=== PATIENT | female | born 2000 | race African-American/Black ===

== ENCOUNTER 2021-05-18 04:04 | Emergency (ER) | payer OTHER ==
[~2021-05-18] VITALS: Ht 157.5 cm; Wt 68.2 kg
[2021-05-18 04:11] VITALS: TEMP 98.7
[2021-05-18 05:08] VITALS: BP 126/83; PULSE 83
[2021-05-18] MEDS ORDERED: ZOFRAN ODT4 MG PO (05:09)
== END 2021-05-18 05:17 | disposition home or self-care (01) ==
LOC: COL.ER 04:04
DX: G89.18 Other acute postprocedural pain (principal); R11.2 Nausea with vomiting, unspecified; J45.909 Unspecified asthma, uncomplicated; Z79.899 Other long term (current) drug therapy
CPT/HCPCS: J1170

== ENCOUNTER 2021-09-10 22:21 | Emergency (ER) | payer OTHER ==
[~2021-09-10 22:21] MED LIST: ZOFRAN ODT4 MG PO
[2021-09-10 22:40] VITALS: TEMP 98.4
[2021-09-10 23:13] LABS: COLLECTION METHOD CLEAN CATCH
[2021-09-10 23:26] LABS: AMORPHOUS CRYSTAL Present (NOT PRESENT); MUCOUS Present (NOT PRESENT); PH 6 (5-8); URINE APPEARANCE Hazy (CLEAR/HAZY); URINE BACTERIA None Seen /hpf (NONE SEEN); URINE BILIRUBIN Negative (NEGATIVE); URINE BLOOD Negative (NEGATIVE); URINE COLOR Yellow (YELLOW); URINE GLUCOSE Negative (NEGATIVE); URINE KETONE Negative (NEGATIVE); URINE LEUKOCYTE ESTERASE Negative (NEGATIVE); URINE NITRATE Negative (NEGATIVE); URINE PROTEIN(semi-quant) Negative (NEGATIVE); URINE UROBILINOGEN Negative (NEGATIVE)
[2021-09-11 00:52] VITALS: BP 107/68; PULSE 72
== END 2021-09-11 00:52 | disposition home or self-care (01) ==
LOC: COL.ER 22:21
PROVIDERS: Physician Assistant
DX: K59.00 Constipation, unspecified (principal); Z32.02 Encounter for pregnancy test, result negative

== ENCOUNTER 2021-09-14 05:27 | Emergency (ER) | payer OTHER ==
[~2021-09-14] VITALS: Ht 157.5 cm; Wt 70.5 kg
[2021-09-14 05:35] VITALS: TEMP 98
[2021-09-14 06:21] LABS: COLLECTION METHOD CLEAN CATCH
[2021-09-14 06:21] LABS: BASO % 0.3 % (0.0-2.0); EOS # 0.1 K/mm3 (0.0-0.7); EOS % 1.1 % (0.0-4.0); GRAN # 5.8 K/mm3 (1.4-6.5); GRAN % 72.4 % (42.2-75.2); HEMOGLOBIN 12.1 g/dl (12.5-16.0); LYMPH # 1.4 K/mm3 (1.2-3.4); LYMPH % 16.9 % (20.0-51.0); MEAN CELL VOLUME 89 fl (80.0-100.0); MEAN CORPUSCULAR HEMOGLOBIN 30 pg (27-31); MEAN CORPUSCULAR HGB CONC 34 g/dl (33.0-37.0); MEAN PLATELET VOLUME 9.9 fl (7.4-10.4); MONO # 0.7 K/mm3 (0.1-0.6); PLATELET COUNT 355 K/mm3 (130-400); RED BLOOD COUNT 4.01 M/mm3 (4.10-5.30); REDCELL DISTRIBUTION WIDTH-CV 13.4 % (11.5-14.5)
[2021-09-14 06:22] LABS: HEMATOCRIT 35.6 % (37.0-47.0)
[2021-09-14 06:36] LABS: ALBUMIN 2.9 gm/dL (3.5-5.0); BILIRUBIN,TOTAL 0.2 mg/dL (0.2-1.2); CALCIUM 9.2 mg/dL (8.4-10.2); CREATININE, serum 0.79 mg/dL (0.57-1.11); POTASSIUM 4.4 mmol/L (3.5-4.5); TOTAL PROTEIN 7.2 gm/dL (6.2-8.1)
[2021-09-14 06:44] LABS: MUCOUS Present (NOT PRESENT); PH 6 (5-8); URINE APPEARANCE Hazy (CLEAR/HAZY); URINE BACTERIA None Seen /hpf (NONE SEEN); URINE BILIRUBIN Negative (NEGATIVE); URINE BLOOD Negative (NEGATIVE); URINE COLOR Yellow (YELLOW); URINE GLUCOSE Negative (NEGATIVE); URINE KETONE Negative (NEGATIVE); URINE LEUKOCYTE ESTERASE Negative (NEGATIVE); URINE NITRATE Negative (NEGATIVE); URINE PROTEIN(semi-quant) Negative (NEGATIVE); URINE RBC 0-2 /hpf (0-2); URINE UROBILINOGEN Negative (NEGATIVE)
[2021-09-14 07:58] VITALS: BP 108/70; PULSE 89
== END 2021-09-14 07:58 | disposition home or self-care (01) ==
LOC: COL.ER 05:27
PROVIDERS: Personal Emergency Response Attendant
DX: R10.2 Pelvic and perineal pain (principal); Z32.02 Encounter for pregnancy test, result negative
CPT/HCPCS: J0696; J2270; J2405; J7030; Q9967

== ENCOUNTER 2021-11-02 08:47 | Day surgery (SDC) | payer OTHER ==
[~2021-11-02] VITALS: Ht 157.5 cm; Wt 66.3 kg
[2021-11-02] MEDS ORDERED: PROAIR HFA0.09 MG/AC IH (09:01)
[2021-11-02] MEDS ORDERED: SPRINTEC 35 MCG1 TAB PO (09:02)
[2021-11-02 09:09] VITALS: BP 108/70; PULSE 83; TEMP 98.2
[2021-11-02 11:20] VITALS: BP 148/74; PULSE 78
[2021-11-02 11:30] VITALS: BP 101/72; PULSE 81
[2021-11-02 11:45] VITALS: BP 106/76; PULSE 73
[2021-11-02 11:55] VITALS: BP 105/74; PULSE 71
--- NOTE | 2021-11-02 11:57 | NUR ---
Discharge instructions given to pt.pt verbalizes understanding.
--- NOTE | 2021-11-02 12:10 | NUR ---
Pt escorted out via wheelchair by this nurse.
[2021-11-02 12:20] VITALS: BP 106/66; PULSE 74
== END 2021-11-02 12:21 ==
LOC: SDCO 08:47
DX: K29.50 Unspecified chronic gastritis without bleeding (principal); R10.9 Unspecified abdominal pain; K59.00 Constipation, unspecified; K64.0 First degree hemorrhoids; R93.3 Abnormal findings on diagnostic imaging of other parts of digestive tract
CPT/HCPCS: J2704; J7030

== ENCOUNTER 2022-12-11 17:48 | Emergency (ER) | payer SELFPAY ==
[~2022-12-11] VITALS: Ht 5.1 cm; Wt 70.5 kg
[~2022-12-11 17:48] MED LIST changes: +PROAIR HFA0.09 MG/AC IH; +SPRINTEC 35 MCG1 TAB PO
[2022-12-11 17:58] VITALS: TEMP 102.9
[2022-12-11 19:01] LABS: STREP SCREEN NEGATIVE
[2022-12-11 19:16] LABS: MONOSCREEN NEGATIVE
[2022-12-11] MEDS ORDERED: ZOFRAN 4MG T4 MG/TAB PO (19:33)
[2022-12-11 19:52] VITALS: BP 116/67; PULSE 74
== END 2022-12-11 19:58 | disposition home or self-care (01) ==
LOC: COL.ER 17:48
PROVIDERS: Physician Assistant
DX: B34.9 Viral infection, unspecified (principal); R50.9 Fever, unspecified; R11.2 Nausea with vomiting, unspecified; H92.03 Otalgia, bilateral; J02.9 Acute pharyngitis, unspecified
CPT/HCPCS: J1885; J2405; J7030